=== PATIENT | female | born 1930 | race Caucasian/White ===

== ENCOUNTER → 2017-01-20 | Outpatient (CLI) | payer MEDICARE ==
[~2017-01-20] MED LIST: AML2.5T; AMLO5TAB4 PO; ASPI-999 PO; ATN25T PO; CALC-913 PO; CEPH500C PO; CHOL20002 PO; CYAN1TAB50 SL; ENAL5TAB PO; EST.625T; EZET10TA5; KCL10CCR; LACT1CAP62 PO; LORA0.5T34; LSRT50T; LVT.05T PO; MAGN400T6 PO; PRED5DRO17 OS; PRED5DRO2I; PRX10T PO; TRHC5025; ZYMAR; [UNRECOGNIZED DRUG - OTHER]
--- NOTE | 2017-01-20 19:42 | Diagnostic Imaging Report ---
Digital mammogram bilateral screening with tomosynthesis. This study was compared to the prior exams of 01/07/2016 and 12/30/2014. At this time, there are no current complaints. The current study was also evaluated with a Computer Aided Detection (CAD) system. FINDINGS: The fibroglandular tissue in both breasts is heterogeneously dense. This does limit the sensitivity of this exam. Overall, there does not appear to have been any significant change when compared to the prior study. A few benign-appearing calcifications are again seen in both breasts. No primary or secondary sign of malignancy is noted. The 3-D tomographic views also fail to show any sign of malignancy. IMPRESSION: There is no radiographic evidence for malignancy. ACR BI-RADS Category 2: Benign findings. Result letter will be mailed to the patient. Note: At least 10% of breast cancer is not imaged by mammography. Dictated by: Dictated on workstation # [id number]
== END ==
LOC: RAD 13:26
PROVIDERS: ATTEND Nurse Practitioner Family
DX: Z12.31 Encounter for screening mammogram for malignant neoplasm of breast (principal)
CPT/HCPCS: 77067

== ENCOUNTER 2017-02-21 21:40 | Emergency (ER) | payer MEDICARE ==
[~2017-02-21] VITALS: Ht 180.3 cm; Wt 42.6 kg
--- NOTE | 2017-02-21 22:44 | ED Fall/Injury ---
General Chief Complaint: Trauma-Non Activation Stated Complaint: FALL Nursing Triage Note: patient reports tripping on rug and hitting head in the shower. patient denies LOC or neck pain Source: patient Exam Limitations: no limitations History of Present Illness Time seen by provider: 22:39 Initial Comments Patient presents to ER by private conveyance with chief complaint of fall just prior to arrival. She was at the assisted living home, via [facility] and she was reaching for a towel in her bathroom and she feels like she tripped over the rug and landed against the shower stall her left side of her head producing a small gash and not on the left side of her parietal scalp. She also hit her left hip which has tenderness. She states she did not lose consciousness however she does take aspirin. She denies any dysuria cough, nausea, vomiting, malaise, weight loss, anorexia, diarrhea. Allergies and Home Medications Allergies Coded Allergies: metoclopramide (Verified Allergy, Unknown, 01/29/15) nabumetone (Unverified Allergy, Unknown, 05/01/07) Home Medications Amlodipine Besylate 5 Mg Tablet, 5 MG PO HS, (Reported) Aspirin 81 Mg Tab.chew, 81 MG PO HS, (Reported) Atenolol 25 Mg Tablet, 25 MG PO BID, (Reported) Calcium Carbonate/Vitamin D3 1 Each Tablet, 1 TAB PO HS, (Reported) Cholecalciferol (Vitamin D3) 2,000 Unit Capsule, 2,000 UNIT PO HS, (Reported) Cyanocobalamin/Folic Acid 1 Each Tab.subl, 1 TAB SL UD, (Reported) TAKES ON THU, , , THU Enalapril Maleate 5 Mg Tablet, 5 MG PO DAILY, (Reported) Lactobacillus Acidophilus 1 Each Capsule, 1 EACH PO AC, #30 Prescribed by: PUMA WOOD on 01/31/15 1725 Levothyroxine Sodium 50 Mcg Tablet, 50 MCG PO UD, (Reported) DAILY ON THURSDAY AND THURSDAY Magnesium Oxide 400 Mg Tablet, 400 MG PO UD, (Reported) TAKES ON ,, Paroxetine Hcl 10 Mg Tablet, 10 MG PO DAILY PRN for ANXIETY, (Reported) Prednisolone Acetate 5 Ml Drops.susp, 1 DROP OS BID, #15 (Reported) Constitutional: No chills, No diaphoresis Eyes: Denies Blindness, Denies Blurred Vision, Denies Drainage Ears, Nose, Mouth, Throat: denies ear pain, denies ear discharge Respiratory: No cough, No dyspnea on exertion, No short of breath Cardiovascular: No chest pain, No palpitations Gastrointestinal: No abdominal pain, No constipation, No diarrhea, No nausea, No vomiting Genitourinary: No discharge, No dysuria Musculoskeletal: see HPI, No back pain Skin: No pruritus, No rash Psychiatric/Neurological: Denies Headache, Denies Numbness, Denies Paresthesia Past Oepqatq-Prmgoi-Ntcokc Hx Patient Social History Alcohol Use: Denies Use Recreational Drug Use: No Smoking Status: Never a Smoker 2nd Hand Smoke Exposure: No Recent Foreign Travel: No Contact w/Someone Who Travel: No Recent Infectious Disease Expo: No Recent Hopitalizations: No Physical Abuse: No Sexual Abuse: No Immunizations Up To Date Tetanus Booster (TDap): Unknown Date of Pneumonia Vaccine: Mar 08, 2011 Date of Influenza Vaccine: Mar 10, 2016 Seasonal Allergies Seasonal Allergies: No Surgeries History of Surgeries: Yes (GASTRIC ULCER SURGERY, bilat ROTATOR CUFF REPAIR, carpal tunner repair) Surgeries: Abdominal, Gallbladder, Hysterectomy, Oophorectomy, Orthopedic Respiratory History of Respiratory Disorde: No Cardiovascular History of Cardiac Disorders: Yes Cardiac Disorders: Coronary Artery Disease, High Cholesterol, Hypertension Neurological History of Neurological Disord: No Neurological Disorders: Dementia, Neuropathy Reproductive System Hx Reproductive Disorders: No Gastrointestinal History of Gastrointestinal Di: Yes (40% OF STOMACH REMOVED for ulcers) Gastrointestinal Disorders: Ulcer, Gall Bladder Disease Musculoskeletal History of Musculoskeletal Dis: Yes (carpal tunnel, bilat rotator cuff repair) Musculoskeletal Disorders: Arthritis, Scoliosis Endocrine History of Endocrine Disorders: Yes Endocrine Disorders: Hypothyroidsim HEENT HEENT Disorders: Cataract Hearing Impairment: Hard of Hearing Cancer History of Cancer: No Psychosocial History of Psychiatric Problem: Yes Behavioral Health Disorders: Anxiety Suicide Risk Score: 0 Integumentary History of Skin or Integumenta: No Blood Transfusions History of Blood Disorders: Yes (ANEMIA) Family Medical History Significant Family History: Diabetes, Hypertension Family Medial History: Arthritis 19 FATHER G8 SISTER Hypertension 19 FATHER Myocardial infarction 19 FATHER Polio G8 BROTHER Physical Exam Vital Signs Vital Sign - Last 12Hours 02/21/17 21:44 Temp 98.9 Pulse 58 Resp 18 B/P (MAP) 204/102 Pulse Ox 99 Capillary Refill : Less Than 3 Seconds General Appearance: WD/WN, no apparent distress HEENT: PERRL/EOMI, normal ENT inspection, TMs normal, pharynx normal Neck: non-tender, full range of motion, supple, normal inspection Cardiovascular: normal peripheral pulses, regular rate, rhythm Respiratory: chest non-tender, lungs clear Peripheral Pulses: 2+ Radial Pulses (R), 2+ Radial Pulses (L) Gastrointestinal: normal bowel sounds, non tender, soft Back: normal inspection, no vertebral tenderness Extremities: normal range of motion, normal capillary refill, other (mild tenderness over left hip greater trochanter.) 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, no motor/sensory deficits, alert, normal mood/affect, oriented x 3 Skin: normal color, warm/dry Lymphatic: no adenopathy Wisner Coma Score Best Eye Response: (4) Open Spontaneously Best Verbal Response: (5) Oriented Best Motor Response: (6) Obeys Commands Nando Total: 15 Laceration Repair : Wound Location: Scalp (left parietal) Wound Length (cm): 2 Wound's Depth, Shape: sub Q Wound Explored: clean Irrigated w/ Saline (ccs): 25 Betadine Prep?: Yes Anesthesia: 1% Lidocaine Volume Anesthetic (ccs): 4 Wound Debrided: minimal Staple Repair: Stapler 35W Number of Sutures: 3 Progress/Results/Core Measures Results/Orders Lab Results Laboratory Tests Test 02/21/17 23:31 Range/Units Urine Color YELLOW Urine Clarity CLEAR Urine pH 6 5-9 Urine Specific [place] 1.020 1.016-1.022 Urine Protein 1+ H NEGATIVE Urine Glucose (UA) NEGATIVE NEGATIVE Urine Ketones NEGATIVE NEGATIVE Urine Nitrite NEGATIVE NEGATIVE Urine Bilirubin NEGATIVE NEGATIVE Urine Urobilinogen NORMAL NORMAL MG/DL Urine Leukocyte Esterase 1+ H NEGATIVE Urine RBC (Auto) 2+ H NEGATIVE Urine RBC 0-2 /HPF Urine WBC 2-5 /HPF Urine Squamous Epithelial Cells 5-10 /HPF Urine Crystals NONE /LPF Urine Bacteria NEGATIVE /HPF Urine Casts NONE /LPF Urine Mucus NEGATIVE /LPF Urine Culture Indicated NO My Orders Orders - NANCY KAM Ct Head/Cervical Spine Wo (02/21/17 21:48) Lidocaine 1% Injection (Xylocaine 1% Inj (02/21/17 22:45) Ua Culture If Indicated (02/21/17 22:42) Medications Given in ED Current Medications Medications Dose Ordered Sig/Kenia Route Start Time Stop Time Status Last Admin Dose Admin Lidocaine HCl 20 ml ONCE ONCE INJ 02/21/17 22:45 02/21/17 22:46 DC 02/21/17 22:53 20 ML Vital Signs/I&O Vital Sign - Last 12Hours 02/21/17 21:44 Temp 98.9 Pulse 58 Resp 18 B/P (MAP) 204/102 Pulse Ox 99 Blood Pressure Mean: 136 Diagnostic Imaging Diagonstic Imaging: Xray Plain Films/CT/US/NM/MRI: hip Comments Osteopenia without acute osseous normality. Reviewed: Reviewed by Me Diagonstic Imaging: CT Plain Films/CT/US/NM/MRI: c-spine, head Comments No osseous abnormality acutely. No intracranial hemorrhage, mass effect, midline shift, tumor. No ICH, mass effect or edema. No skull fracture. Mild soft tissue swelling in the left parietal region. Cerebral atrophy with small vessel ischemic changes. There is a mild mucosal thickening in the paranasal sinuses. CT C-spine shows a mild grade 1 anterolisthesis of C7 on T1. Degenerative changes of the facet joints are also noted at this level. The vertebral lines otherwise normal. There is no evidence for cervical spine fracture. Incidentally there degenerative changes of cervical spine and erosive changes noted of the dens. Differential diagnosis could include but not limited to rheumatoid arthritis, CPPD arthropathy, doubt, osteoporosis. Emphysematous changes to the lung apices. Reviewed: Reviewed by Me Departure Impression Impression: Primary Impression: Fall Qualified Codes: W19.XXXA - Unspecified fall, initial encounter Additional Impressions: Laceration Hematoma Disposition: 01 HOME, SELF-CARE Condition: Stable Departure-Patient Inst. Referrals: PUMA WOOD MD (PCP/Family) Primary Care Physician Patient Instructions: Laceration Repair With [place] (DC) Add. Discharge Instructions: Plan on following up 5-7 days, through Thursday in the ER for wound check and staple removal. You may also follow-up with her primary care physician for this. If you have drainage from the wound, worsening pain, nausea and vomiting or other worrisome symptoms you should return to the ER or your primary care physician for further evaluation. Keep the wound clean with soap and water and apply a light dollop of Vaseline directly over the skin edges daily. Keep the wound dressed for the first couple days and do not submerge it under water for the first 2-3 days. It is okay to shower however. Simple gauze dressing to keep dirt and debris out of the wound changed daily or as it becomes soiled. All discharge instructions reviewed with patient and/or family. Voiced understanding. Copy Copies To 1: PUMA WOOD MD, TITUS J Feb 21, 2017 22:44
[2017-02-21] MEDS ORDERED: LIDOCAINE 1% INJ 20 ML (XYLOCAINE) VIAL INJ ONE (22:45)
[2017-02-21 23:39] LABS: BILIRUBIN,URINE NEGATIVE (NEGATIVE); KETONES,URINE NEGATIVE (NEGATIVE); LEUKOCYTE ESTERASE ,URINE 1+ (NEGATIVE); NITRITE,URINE NEGATIVE (NEGATIVE); PH,URINE 6 (5-9); PROTEIN,URINE 1+ (NEGATIVE); UROBILINOGEN,URINE NORMAL (NORMAL)
[2017-02-22 00:04] VITALS: BP 197/75
--- NOTE | 2017-02-22 08:21 | Diagnostic Imaging Report ---
INDICATION: Fall with head and neck pain CT brain findings: Noncontrast brain CT is performed. There are mild diffuse atrophic changes. There are patchy low-density changes in the deep white matter compatible with chronic ischemic change. There is no acute hemorrhage or mass effect or midline shift. Ventricles are normal in size. Calvarial windows show no fracture. CT cervical spine findings: Axial slices are obtained with sagittal and coronal reconstructions without contrast. There was no evidence of cervical spine fracture. There is diffuse degenerative change with disc space narrowing from C4 through T1. There is slight anterolisthesis of C7 on T1 by about 1-2 mm. This may be on a degenerative basis. There are some chronic erosive changes of the dens with pannus formation. This may be due to osteoarthritis or rheumatoid arthritis, or CPPD arthropathy. IMPRESSION: CT brain shows chronic changes with no acute intracranial abnormality or calvarial fracture. CT cervical spine demonstrates chronic changes as well with no acute fracture. There is mild anterolisthesis of C7 on T1 which is likely on a degenerative basis. Dictated by: Dictated on workstation # [id number]
--- NOTE | 2017-02-22 09:10 | Diagnostic Imaging Report ---
INDICATION: Fall on left side. FINDINGS: There are advanced bilateral hip osteoarthritic changes. The bones are osteopenic which limits the overall sensitivity but there is no plain film demonstration of a proximal left femoral fracture. There is no evidence of diastases of the pubic symphysis or SI joints. The pelvic ring appears intact. Marked degenerative features within the lumbar spine with a dextroscoliosis are unchanged from prior exams. IMPRESSION: 1. Bilateral hip osteoarthritis and osteopenia. There is no dislocation or plain film evidence of acute fracture. However as osteopenia limits sensitivity of this examination if continued symptomatology or inability to bear weight, cross-sectional imaging should be considered. Dictated by: Dictated on workstation # [id number]
== END 2017-02-22 00:04 | disposition home or self-care (01) ==
LOC: EDUNIT# 21:40 → ER 21:42
DX: S01.01XA Laceration without foreign body of scalp, initial encounter (principal); S70.02XA Contusion of left hip, initial encounter; I25.10 Atherosclerotic heart disease of native coronary artery without angina pectoris; I10 Essential (primary) hypertension; E78.00 Pure hypercholesterolemia, unspecified; F03.90 Unspecified dementia, unspecified severity, without behavioral disturbance, psychotic disturbance, mood disturbance, and anxiety; M19.90 Unspecified osteoarthritis, unspecified site; E03.9 Hypothyroidism, unspecified; F41.9 Anxiety disorder, unspecified; M41.9 Scoliosis, unspecified; Z87.19 Personal history of other diseases of the digestive system; Z90.710 Acquired absence of both cervix and uterus; Z79.82 Long term (current) use of aspirin; Z82.49 Family history of ischemic heart disease and other diseases of the circulatory system; W01.10XA Fall on same level from slipping, tripping and stumbling with subsequent striking against unspecified object, initial encounter; Y92.091 Bathroom in other non-institutional residence as the place of occurrence of the external cause
CPT/HCPCS: 12001; 70450; 72125; 81000

== ENCOUNTER → 2017-03-24 | Outpatient (CLI) | payer MEDICARE, OTHER | LOC: CARD 09:24 | PROVIDERS: ATTEND Internal Medicine Cardiovascular Disease | DX: M79.89 Other specified soft tissue disorders (principal); I25.10 Atherosclerotic heart disease of native coronary artery without angina pectoris; E78.4 Other hyperlipidemia; I10 Essential (primary) hypertension; I47.1 Supraventricular tachycardia | CPT/HCPCS: 93306 ==

== ENCOUNTER 2017-07-29 18:53 | Emergency (ER) | payer MEDICARE ==
[~2017-07-29] VITALS: Ht 157.5 cm; Wt 59.9 kg
--- NOTE | 2017-07-29 19:28 | ED Fall/Injury ---
General Chief Complaint: Trauma-Non Activation Stated Complaint: FALL Source: patient (PT WITH DEMENTIA/POOR MEMORY AND IS LIMITED HISTORIAN), other (SISTER) History of Present Illness Date Seen by Provider: Jul 29, 2017 Time Seen by Provider: 19:12 Initial Comments PT ARRIVES VIA POV FROM [facility] PT STATES SHE GOT UP TO GO TO DINING AREA, AND THINKS SHE LOST HER BALANCE GOING AROUND THE CORNER OF THE COUCH, AND FELL, LANDING ON CARPETED FLOOR HAS ABRASION/SKIN TEAR TO RIGHT WRIST/FOREARM AREA HAS BUMP TO RIGHT SIDE OF HEAD HAS BUMP TO RIGHT LATERAL MID THIGH PT WITH POOR MEMORY AND UNABLE TO GIVE ANY OTHER DETAILS ABOUT THE FALL OCCURRED AT [facility], ACCORDING TO NOTES FROM NURSE AT FACILITY. IS BELIEVED THAT IT WAS WITNESSED BY OTHER PEOPLE LIVING IN FACILITY. PT DENIES PAIN ANYWHERE SISTER IS HERE WITH PT AND STATES THAT PT IS IN NORMAL BASELINE STATE WITH MILD CONFUSION/POOR MEMORY PCP:DR. WOOD Allergies and Home Medications Allergies Coded Allergies: metoclopramide (Verified Allergy, Unknown, 01/29/15) nabumetone (Unverified Allergy, Unknown, 05/01/07) Home Medications Amlodipine Besylate 5 Mg Tablet, 5 MG PO HS, (Reported) Aspirin 81 Mg Tab.chew, 81 MG PO HS, (Reported) Atenolol 25 Mg Tablet, 25 MG PO BID, (Reported) Calcium Carbonate/Vitamin D3 1 Each Tablet, 1 TAB PO HS, (Reported) Cholecalciferol (Vitamin D3) 2,000 Unit Capsule, 2,000 UNIT PO HS, (Reported) Cyanocobalamin/Folic Acid 1 Each Tab.subl, 1 TAB SL UD, (Reported) TAKES ON THU, , , THU Enalapril Maleate 5 Mg Tablet, 5 MG PO DAILY, (Reported) Lactobacillus Acidophilus 1 Each Capsule, 1 EACH PO AC, #30 Prescribed by: PUMA WOOD on 01/31/15 1725 Levothyroxine Sodium 50 Mcg Tablet, 50 MCG PO UD, (Reported) DAILY ON THURSDAY AND THURSDAY Magnesium Oxide 400 Mg Tablet, 400 MG PO UD, (Reported) TAKES ON M,W, Paroxetine Hcl 10 Mg Tablet, 10 MG PO DAILY PRN for ANXIETY, (Reported) Prednisolone Acetate 5 Ml Drops.susp, 1 DROP OS BID, #15 (Reported) Constitutional: no symptoms reported Eyes: No Symptoms Reported Ears, Nose, Mouth, Throat: no symptoms reported Respiratory: no symptoms reported Cardiovascular: no symptoms reported Gastrointestinal: no symptoms reported Genitourinary: no symptoms reported Musculoskeletal: see HPI Skin: see HPI Psychiatric/Neurological: See HPI Past Afcbpgn-Oblrsy-Nmwgot Hx Patient Social History Alcohol Use: Denies Use Recreational Drug Use: No Smoking Status: Never a Smoker 2nd Hand Smoke Exposure: No Recent Foreign Travel: No Contact w/Someone Who Travel: No Recent Hopitalizations: No Physical Abuse: No Sexual Abuse: No Mistreated: No Fear: No Immunizations Up To Date Tetanus Booster (TDap): Unknown Date of Pneumonia Vaccine: Mar 08, 2011 Date of Influenza Vaccine: Mar 10, 2016 Seasonal Allergies Seasonal Allergies: No Surgeries History of Surgeries: Yes (GASTRIC ULCER SURGERY, bilat ROTATOR CUFF REPAIR, carpal tunner repair) Surgeries: Abdominal, Eye Surgery, Gallbladder, Hysterectomy, Oophorectomy, Orthopedic Respiratory History of Respiratory Disorde: No Cardiovascular History of Cardiac Disorders: Yes Cardiac Disorders: Coronary Artery Disease, High Cholesterol, Hypertension Neurological History of Neurological Disord: Yes (LOWER JAW TREMOR) Neurological Disorders: Dementia, Neuropathy Reproductive System Hx Reproductive Disorders: No Genitourinary History of Genitourinary Disor: No Gastrointestinal History of Gastrointestinal Di: Yes (40% OF STOMACH REMOVED for ulcers) Gastrointestinal Disorders: Ulcer, Gall Bladder Disease Musculoskeletal History of Musculoskeletal Dis: Yes (carpal tunnel, bilat rotator cuff repair) Musculoskeletal Disorders: Arthritis, Scoliosis Endocrine History of Endocrine Disorders: Yes Endocrine Disorders: Hypothyroidsim HEENT History of HEENT Disorders: Yes (GLASSES) HEENT Disorders: Cataract Hearing Impairment: Hard of Hearing Cancer History of Cancer: No Psychosocial History of Psychiatric Problem: Yes Behavioral Health Disorders: Anxiety Suicide Risk Score: 0 Integumentary History of Skin or Integumenta: No Blood Transfusions History of Blood Disorders: Yes (ANEMIA) Family Medical History Significant Family History: Diabetes, Hypertension Family Medial History: Arthritis 19 FATHER G8 SISTER Hypertension 19 FATHER Myocardial infarction 19 FATHER Polio G8 BROTHER Physical Exam Vital Signs Vital Signs - First Documented 07/29/17 19:29 Temp 99.2 Pulse 71 Resp 20 B/P (MAP) 174/92 (119) Pulse Ox 97 Capillary Refill : General Appearance: WD/WN, no apparent distress, thin, other (LOWER JAW TREMOR) HEENT: PERRL/EOMI, normal ENT inspection, TMs normal, pharynx normal, other ( SLIGHTLY RAISED CONTUSION TO RIGHT PARIETAL AREA) Neck: non-tender, normal inspection Cardiovascular: normal peripheral pulses, regular rate, rhythm, no murmur Respiratory: chest non-tender, normal breath sounds, no respiratory distress, no accessory muscle use Gastrointestinal: normal bowel sounds, non tender, soft Back: normal inspection, no CVA tenderness, no vertebral tenderness Extremities: normal range of motion, no pedal edema, no calf tenderness, normal capillary refill, other (FREELY USING RIGHT ARM AND HAND; 6 CM SKIN TEAR TO DORSAL ASPECT OF RIGHT DISTAL FOREARM/WRIST AREA--STERI STRIPS IN PLACE ( DONE PRIOR TO ARRIVAL BY [facility]AFF, AND DRESSING OVER WOUND) HAS FAINT BRUISE TO RIGHT LATERAL MID THIGH. NO BONY TENDERNESS. 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, no motor/sensory deficits, alert, normal mood/affect, oriented x 3 (BUT POOR MEMORY) Skin: normal color, warm/dry, other (ABRASION/SKIN TEAR TO RIGH DISTAL FOREARM/ WRIST) Nando Coma Score Best Eye Response: (4) Open Spontaneously Best Verbal Response: (5) Oriented Best Motor Response: (6) Obeys Commands [place] Total: 15 Progress/Results/Core Measures Results/Orders My Orders Orders - KEISHA VUONG DO Ct Head/Cervical Spine Wo (07/29/17 19:19) Forearm, Right, 2 Views (07/29/17 19:19) Wrist, Right, 3 Views Or More (07/29/17 19:19) Femur, Right, 2 Views (07/29/17 19:19) Pelvis (07/29/17 19:19) Dipht,Pertuss(Acell),Tet Adult (Boostrix (07/29/17 19:30) Medications Given in ED Current Medications Medications Dose Ordered Sig/Kenia Route Start Time Stop Time Status Last Admin Dose Admin Diphtheria/ Tetanus/Acell Pertussis 0.5 ml ONCE ONCE IM 07/29/17 19:30 07/29/17 19:31 DC 07/29/17 19:56 0.5 ML Vital Signs/I&O Vital Sign - Last 12Hours 07/29/17 07/29/17 07/29/17 19:29 19:30 20:44 Temp 99.2 99.2 99.2 Pulse 71 71 67 Resp 20 20 20 B/P (MAP) 174/92 (119) 174/92 (119) 172/87 (119) Pulse Ox 97 97 100 Progress Note : Progress Note UNEVENTFUL ER STAY PT REMAINED VERY PLEASANT AND HAD NO COMPLAINTS DURING ER STAY Diagnostic Imaging Comments CT HEAD/CERVICAL SPINE--SMALL ACUTE RIGHT SUBDURAL HEMATOMA--3.4 MM. NO MASS EFFECT OR MIDLINE SHIFT--PER RADIOLOGIST VIA PHONE AT 1948 CXR--NO ACUTE PROCESS PELVIS AND RIGHT FEMUR--NO ACUTE PROCESS RIGHT FOREARM AND WRIST--NO ACUTE PROCESS ALL PER RADIOLOGIST REPORTS AT 2024 Reviewed: Reviewed by Me Departure Communication (Admissions) Progress Notes 2001--SPOKE WITH DR. WOOD, VERIFIED THAT PT IS DNR/DNI AND DOES NOT RECOMMEND ADMIT OR TRANSFER AT THIS TIME. SHE ADVISES TO SEND BACK TO [facility] AND SHE WILL ORDER FOLLOW UP OUTPATIENT CT OF HEAD--[facility] STAFF TO CALL HER OFFICE IN AM TO ARRANGE. 2004--SPOKE WITH PT'S SON, FLORENCE, AND HE AGREES WITH THE ABOVE PLAN Impression Impression: Primary Impression: Status post fall Additional Impressions: Subdural hematoma without coma SKIN TEAR RIGHT FOREARM Contusion of right thigh, initial encounter Yfurzdaiii-btnjrcofc-ovykfch (DPT) vaccination administered at current visit Disposition: 03 XFER SNF Condition: Stable Departure-Patient Inst. Referrals: PUMA WOOD MD (PCP/Family) Primary Care Physician Patient Instructions: Contusion (DC), Diphtheria and Tetanus Toxoids, and Acellular Pertussis Vaccine, Preventing Falls in the Older Adult, Subdural Hematoma (DC), Wound Care (DC) Add. Discharge Instructions: HOLD ASPIRIN CONTINUE ALL OTHER MEDICATIONS PRESCRIBED NEURO CHECKS EVERY [address] WOOD'S OFFICE IN THE MORNING TO ARRANGE FOLLOW UP CT SCAN OF HEAD All discharge instructions reviewed with patient and/or family. Voiced understanding. KEISHA VUONG DO Jul 29, 2017 19:28
[2017-07-29] MEDS ORDERED: TETANUS,DIPTH,PERTUSS P/F (BOOSTRIX) 0.5 ML VIAL IM ONE (19:30)
--- NOTE | 2017-07-29 19:52 | Diagnostic Imaging Report ---
PROCEDURE: CT head and CT cervical spine without contrast. TECHNIQUE: Multiple contiguous axial images were obtained through the brain and cervical spine without the use of intravenous contrast. Sagittal and coronal reformations through the cervical spine were then performed. DATE: 07/29/2017. COMPARISON: CT head and cervical spine 02/21/2017. INDICATION: 86-year-old female, fall. Right-sided hematoma of the head. FINDINGS: There is soft tissue prominence along the right lateral scalp compatible with soft tissue hematoma/contusion. There is no identified radiopaque foreign body. There is offset of the posterior aspect of the right zygomatic bone which is unchanged since comparison CT head examination. There is no identified acute skull fracture. There is a small acute right-sided subdural hematoma measuring 3.4 mm in thickness as measured on image 19. There is no evidence of acute intraparenchymal hemorrhage. The ventricles and CSF spaces are normal in size and configuration for patient age. There is no pronounced mass effect or midline shift. The visualized portions of the paranasal sinuses, mastoid air cells and middle ears are well aerated. There is no identified facet joint subluxation or dislocation. There are multilevel facet degenerative changes of the cervical spine. There is prominent chondrocalcinosis with extensive degenerative change at the C1-C2 articulation as well as areas of prominent soft tissue attenuation in this region. 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 There is moderate disc height loss at C4-C5, C5-C6, C6-C7, and C7-T1. There is grade 1 anterolisthesis of C7 on T1 measuring 2.5 mm. There is no asymmetric widening of the cervical disc spaces. There is no prominent prevertebral soft tissue swelling. There is no identified acute fracture of the cervical spine. CT is limited for assessment of disc pathology as well as other non-bony causes of foraminal and spinal stenosis. There are bilateral carotid vascular calcifications. The visualized portions of the lung apices are clear. IMPRESSION: 1. Small acute right-sided subdural hematoma measuring 3.4 mm in thickness without pronounced mass effect or midline shift. 2. Right lateral scalp soft tissue hematoma/contusion. 3. No acute intraparenchymal hemorrhage within the brain. 4. No identified acute posttraumatic abnormality of the cervical spine. 5. 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 Dr. Ventura was notified by telephone of the acute subdural hematoma at 1945 hrs on 07/29/2017 and acknowledged receipt of this critical result. Dictated by: Dictated on workstation # [id number]
--- NOTE | 2017-07-29 20:03 | Diagnostic Imaging Report ---
INDICATION: Knot mid femur post fall. TECHNIQUE: AP and lateral views of the right femur at 08:05 p.m. CORRELATION STUDY: None. FINDINGS: Femur is intact. Degenerative change in the visualized hip and knee. Bony demineralization. Soft tissues unremarkable. IMPRESSION: 1. Negative for acute bony abnormality of the right femur. Dictated by: Dictated on workstation # [id number]
--- NOTE | 2017-07-29 20:12 | Diagnostic Imaging Report ---
INDICATION: Wrist pain post fall. TECHNIQUE: Three views of the right wrist. CORRELATION STUDY: None. FINDINGS: There is marked severity bony demineralization. There is diffuse joint space narrowing. There is extensive calcification, particularly in the region of the triangular fibrocartilage as well as additional soft tissue calcification. Definitive acute fracture is not demonstrated. There does appear to be the presence of soft tissue defects with bandage material, dorsally. IMPRESSION: Marked bony demineralization and rather advanced chronic type change about the wrist. Subtle fracture would be difficult to exclude but so not appear to be present. If symptoms persist, short-term followup repeat imaging would be recommended. Dictated by: Dictated on workstation # [id number]
--- NOTE | 2017-07-29 20:14 | Diagnostic Imaging Report ---
INDICATION: Status post fall, pain. TECHNIQUE: AP pelvis. CORRELATION STUDY: None. FINDINGS: There is a large amount of overlying bowel gas and stool obscuring detail. The pelvis, however, appears to be intact without definitive acute fracture. Advanced degenerative change with bilateral hip joint space narrowing. Marked degenerative change of the visualized lower lumbar spine. IMPRESSION: Negative for acute displaced pelvic fracture. 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 Dictated by: Dictated on workstation # [id number]
--- NOTE | 2017-07-29 20:20 | Diagnostic Imaging Report ---
INDICATION: Pain post fall. TECHNIQUE: Two views of the right forearm. CORRELATION STUDY: None. FINDINGS: Diffuse bony demineralization is present. Definitive acute fracture of the radius and/or ulna does not appear to be present. Rather markedly advanced degenerative change about the wrist. Some soft tissue swelling. Apparent defect along the distal dorsal forearm. IMPRESSION: Negative for acute bony abnormality of the forearm. Soft tissue defect and swelling of the distal forearm. Dictated by: Dictated on workstation # [id number]
[2017-07-29 20:44] VITALS: BP 172/87
== END 2017-07-29 20:44 ==
LOC: EDUNIT# 18:53 → ER 18:54
DX: S61.511A Laceration without foreign body of right wrist, initial encounter (principal); S70.11XA Contusion of right thigh, initial encounter; I25.10 Atherosclerotic heart disease of native coronary artery without angina pectoris; I10 Essential (primary) hypertension; F41.9 Anxiety disorder, unspecified; E78.00 Pure hypercholesterolemia, unspecified; I25.2 Old myocardial infarction; F03.90 Unspecified dementia, unspecified severity, without behavioral disturbance, psychotic disturbance, mood disturbance, and anxiety; E03.9 Hypothyroidism, unspecified; R40.2142 Coma scale, eyes open, spontaneous, at arrival to emergency department; R40.2252 Coma scale, best verbal response, oriented, at arrival to emergency department; R40.2362 Coma scale, best motor response, obeys commands, at arrival to emergency department; Z23 Encounter for immunization; Z87.448 Personal history of other diseases of urinary system; Z88.8 Allergy status to other drugs, medicaments and biological substances; Z79.82 Long term (current) use of aspirin; Z79.52 Long term (current) use of systemic steroids; Z87.19 Personal history of other diseases of the digestive system; Z90.710 Acquired absence of both cervix and uterus; W18.39XA Other fall on same level, initial encounter
CPT/HCPCS: 70450; 72125; 72170; 73090; 73110; 73552; 90471; 90715

== ENCOUNTER → 2017-07-31 | Outpatient (CLI) | payer MEDICARE, OTHER ==
--- NOTE | 2017-07-31 13:42 | Diagnostic Imaging Report ---
PROCEDURE: CT head without contrast. TECHNIQUE: Multiple contiguous axial images were obtained through the brain without the use of intravenous contrast. INDICATION: Head injury. COMPARISON: Comparison is made with a recent head CT from 07/29/2017. FINDINGS: The ventricular size and sulcal pattern are stable. Previously noted very thin acute subdural hematoma along the right cerebral convexity is no longer visualized. There is no mass effect or midline shift. There is some subtle increased density along the right posterior temporal lobe, suggesting minimal acute subarachnoid blood. This was present on prior study as well. This appears about the same. No intraparenchymal hemorrhage is seen. There is moderate periventricular hypodensity noted consistent with senescent change. Cisterns are patent. Visualized paranasal sinuses are clear. IMPRESSION: 1. Resolution of previously noted right cerebral convexity subdural hematoma. Minimal acute subarachnoid hemorrhage along the right posterior temporal lobe is stable. Dictated by: Dictated on workstation # [id number]
== END ==
LOC: RAD 13:08
PROVIDERS: ATTEND Nurse Practitioner Family
DX: S09.90XA Unspecified injury of head, initial encounter (principal)
CPT/HCPCS: 70450

== ENCOUNTER → 2017-09-18 | Outpatient (CLI) | payer MEDICARE ==
--- NOTE | 2017-09-18 09:28 | Diagnostic Imaging Report ---
INDICATION: Right hand pain. Recent fall. COMPARISON: None. FINDINGS: Three views of the right hand are obtained. There is generalized osteopenia. No acute fracture or malalignment is seen. There is some mild joint space narrowing involving the metacarpophalangeal joints particularly involving the second, third and fourth fingers. There are also mild degenerative changes of the interphalangeal joints bilaterally. There is some chondrocalcinosis of the triangular fibrocartilage complex. IMPRESSION: Generalized osteopenia and degenerative changes. No acute fractures seen. Dictated by: Dictated on workstation # [id number]
== END ==
LOC: RAD 09:04
PROVIDERS: ATTEND Nurse Practitioner Family
DX: M85.88 Other specified disorders of bone density and structure, other site (principal); M19.041 Primary osteoarthritis, right hand; W19.XXXA Unspecified fall, initial encounter
CPT/HCPCS: 73130